=== PATIENT | male | born 1965 | race Native Hawaiian/Other Pacific Islander ===

== ENCOUNTER → 2022-08-05 | Outpatient (CLI) | payer BC | LOC: RAD 14:14 | PROVIDERS: ATTEND Nurse Practitioner Family | DX: R05.1 Acute cough (principal); R06.02 Shortness of breath; U09.9 Post COVID-19 condition, unspecified ==

== ENCOUNTER 2022-08-18 13:58 | Outpatient (CLI) | payer BC | END 2022-08-18 19:05 | disposition home or self-care (01) | LOC: RESP 13:58 | PROVIDERS: ATTEND Internal Medicine Cardiovascular Disease | DX: R00.0 Tachycardia, unspecified (principal) ==

== ENCOUNTER 2022-10-14 08:49 | Emergency (ER) | payer BC ==
[~2022-10-14] VITALS: Ht 182.9 cm; Wt 129.7 kg
[2022-10-14 08:55] VITALS: TEMP 98.6
[2022-10-14 09:22] LABS: PLATELET COUNT 162 K/uL (142-355)
[2022-10-14 09:27] LABS: POTASSIUM 3.3 mmol/L (3.6-5.2)
[2022-10-14 13:00] VITALS: BP 134/85
== END 2022-10-14 13:22 | disposition short-term general hospital (02) ==
LOC: ED 08:49
PROVIDERS: Internal Medicine
PROC: 0D9670Z Drainage of Stomach with Drainage Device, Via Natural or Artificial Opening (ICD-10-PCS; principal; 2022-10-14)
DX: K56.600 Partial intestinal obstruction, unspecified as to cause (principal); Z11.52 Encounter for screening for COVID-19
CPT/HCPCS: 36415; 43754; 80053; 81002; 85027; 87635; 96361; 96374; 96375; 96376; 99284; J2270; J2405; J7120; Q9963; U0003

== ENCOUNTER 2023-01-27 09:32 | Day surgery (SDC) | payer BC | END 2023-01-27 12:10 | disposition home or self-care (01) | LOC: OR 09:32 | PROVIDERS: ATTEND Internal Medicine Gastroenterology | PROC: 0DBN8ZX Excision of Sigmoid Colon, Via Natural or Artificial Opening Endoscopic, Diagnostic (ICD-10-PCS; principal; 2023-01-27) | PROC: 0DBP8ZX Excision of Rectum, Via Natural or Artificial Opening Endoscopic, Diagnostic (ICD-10-PCS; 2023-01-27) | DX: Z12.11 Encounter for screening for malignant neoplasm of colon (principal); D12.5 Benign neoplasm of sigmoid colon; K62.1 Rectal polyp; K57.30 Diverticulosis of large intestine without perforation or abscess without bleeding; K64.8 Other hemorrhoids | CPT/HCPCS: J2704; J7120 ==